=== PATIENT | male | born 1975 | race Hispanic/Latino ===

== ENCOUNTER 2018-05-11 16:36 | Emergency (ER) | payer OTHER ==
[2018-05-11 17:36] LABS: BASOPHILS % (AUTO) 0.6 % (0.0-5.0); EOSINOPHILS % (AUTO) 0.9 % (0.0-8.0); HEMATOCRIT 27.9 % (42-54); LYMPHOCYTES % (AUTO) 11.8 % (21.0-51.0); MEAN CORPUSCULAR HGB CONC 33.2 g/dL (32.0-36.0); MEAN CORPUSCULAR VOLUME 81.4 fL (79-99); MONOCYTES % (AUTO) 12.6 % (3.0-13.0); NEUTROPHILS % (AUTO) 74.1 % (40.0-77.0); NUCLEATED RED BLOOD CELLS 0.2 % (0.0-0.19); PLATELET COUNT (AUTO) 335 K/uL (130-400); RED BLOOD CELL COUNT(AUTO) 3.43 MIL/uL (4.50-6.20); RED CELL DISTRIBUTION WIDTH 15.5 % (11.0-15.5); WHITE BLOOD COUNT (AUTO) 8.9 K/uL (4.8-10.8)
[2018-05-11 17:50] LABS: INR 1.01 (0.85-1.15); PROTHROMBIN TIME 10.6 SEC (9.6-11.6)
[2018-05-11 17:51] LABS: AMYLASE 225 U/L (25-115); CREATINE KINASE, TOTAL 126 U/L (21-232); LIPASE 975 U/L (114-286)
[2018-05-11] MEDS ORDERED: SODIUM CHLORIDE 0.9% 1000ML 1,000 ML IV ONE (17:57)
[2018-05-11] MEDS ORDERED: ONDANSETRON HCL 4 MG/2 ML VIAL ONE (17:57)
[2018-05-11 18:29] LABS: CREATININE 2.7 mg/dL (0.5-1.5); POTASSIUM 4.7 mmol/L (3.5-5.1)
[2018-05-11 18:34] LABS: ALBUMIN 2.8 g/dL (3.5-5.0); BILIRUBIN,TOTAL 0.4 mg/dL (0.2-1.0); TOTAL PROTEIN, SERUM 8.9 g/dL (6.0-8.3)
[2018-05-11] MEDS ORDERED: DOCUSATE SODIUM 100 MG CAP PO ONE (19:04)
== END 2018-05-11 19:31 | disposition home or self-care (01) ==
LOC: EDH 16:36
DX: K85.90 Acute pancreatitis without necrosis or infection, unspecified (principal); K59.00 Constipation, unspecified; N28.9 Disorder of kidney and ureter, unspecified; Z21 Asymptomatic human immunodeficiency virus [HIV] infection status
CPT/HCPCS: 36415; 74176; 80053; 82150; 82550; 83690; 84484; 85025; 85610; 85730; 93005; 96361; 96374; 99284; J2405; J7030

== ENCOUNTER 2018-05-14 20:31 | Inpatient (IN) | payer OTHER ==
[~2018-05-14] VITALS: Ht 170.2 cm; Wt 49.9 kg
[2018-05-14 21:09] LABS: BASOPHILS % (AUTO) 1.3 % (0.0-5.0); HEMATOCRIT 27.9 % (42-54); LYMPHOCYTES % (AUTO) 16.7 % (21.0-51.0); MEAN CORPUSCULAR HEMOGLOBIN 27.5 pg (27.0-33.0); MEAN CORPUSCULAR HGB CONC 34.2 g/dL (32.0-36.0); MEAN CORPUSCULAR VOLUME 80.6 fL (79-99); MONOCYTES % (AUTO) 13.4 % (3.0-13.0); NEUTROPHILS % (AUTO) 63.6 % (40.0-77.0); NUCLEATED RED BLOOD CELLS 0.1 % (0.0-0.19); PLATELET COUNT (AUTO) 434 K/uL (130-400); RED BLOOD CELL COUNT(AUTO) 3.47 MIL/uL (4.50-6.20); RED CELL DISTRIBUTION WIDTH 15.7 % (11.0-15.5)
[2018-05-14 21:26] LABS: INR 0.96 (0.85-1.15); PARTIAL THROMBOPLASTIN TIME 27.7 SEC (26.3-35.5); PROTHROMBIN TIME 10.1 SEC (9.6-11.6)
[2018-05-14 21:35] LABS: AMYLASE 210 U/L (25-115); CREATINE KINASE, TOTAL 52 U/L (21-232); LIPASE 1012 U/L (114-286)
[2018-05-14] MEDS ORDERED: ONDANSETRON HCL 4 MG/2 ML VIAL ONE (21:44)
[2018-05-14] MEDS ORDERED: SODIUM CHLORIDE 0.9% 1000ML 1,000 ML IV ONE (21:44)
[2018-05-14 21:48] LABS: APPEARANCE,URINE Clear (CLEAR); BILIRUBIN,URINE Negative (NEGATIVE); COLOR,URINE Orange (YELLOW); GLUCOSE, URINE (UA) Negative (NEGATIVE); KETONES,URINE Negative (NEGATIVE); LEUKOCYTE ESTERASE ,URINE Negative (NEGATIVE); NITRATE,URINE Negative (NEGATIVE); OCCULT BLOOD,URINE Negative (NEGATIVE); PH,URINE 6.5 (5.0-8.0); PROTEIN,URINE POS 1+ (NEGATIVE)
[2018-05-14 22:09] LABS: B-TYPE NATRIURETIC PEPTIDE < 5 pg/mL (0-100)
[2018-05-14 22:15] LABS: BACTERIA,URINE Rare /HPF (None Seen); MUCUS,URINE Moderate LPF (None Seen); RBC,URINE None Seen /HPF (0-1); TRANSITIONAL EPI CELLS,URINE Few /HPF (None Seen)
[2018-05-14] MEDS ORDERED: DEXTROSE 5 % AND 0.9 % NACL 1,000 ML IV ONE (22:49)
[2018-05-14] MEDS ORDERED: LEVOFLOXACIN 500 MG/D5W 100 ML 100 ML ONE (22:49)
[2018-05-14 22:54] LABS: CHOLESTEROL 108 mg/dL (<200); HDL CHOLESTEROL 22 mg/dL (29-71); LDL DIRECT 73 mg/dL (0-99); TRIGLYCERIDES 113 mg/dL (30-200)
[2018-05-14] MEDS: DEXTROSE 5 % AND 0.9 % NACL 1,000 ML IV SCH (23:45)
[2018-05-14] MEDS ORDERED: MORPHINE SULFATE 2 MG/ML 1ML SYG IVP PRN (23:45)
[2018-05-14] MEDS ORDERED: ACETAMINOPHEN 325 MG TAB PO PRN (23:45)
[2018-05-15] MEDS: LEVOFLOXACIN 500 MG/D5W 100 ML 100 ML IV SCH
[2018-05-15 06:05] LABS: CREATININE 1.8 mg/dL (0.5-1.5); POTASSIUM 5.1 mmol/L (3.5-5.1)
[2018-05-15 07:59] VITALS: BP 108/65
[2018-05-15] MEDS: FAMOTIDINE/PF 20 MG/2 ML VIAL IV SCH (09:00)
[2018-05-15 11:28] VITALS: BP 90/67
--- NOTE | 2018-05-15 12:00 | NUR ---
RECORDS REQUESTED FROM [facility]
--- NOTE | 2018-05-15 14:00 | NUR ---
SESAR DCP ADVISED BY KAREN FROM [facility] THAT THIS PATIENT OF [place] CAN BE TRNA SFERRED WITH AN MD ORDER TO [facility]; WILL INITATED INFO AND WAIN FOR MD ORDER TO TRANSFER
[2018-05-15 15:39] VITALS: BP 98/67
[2018-05-15] MEDS: DEXTROSE 5 % AND 0.9 % NACL 1,000 ML IV SCH (17:49)
[2018-05-15 19:00] VITALS: BP 106/64
[2018-05-16] VITALS (7 sets, daily range): BP systolic 92–108; BP diastolic 59–73
[2018-05-16] MEDS: LEVOFLOXACIN 500 MG/D5W 100 ML 100 ML IV SCH (00:57)
[2018-05-16] MEDS: DEXTROSE 5 % AND 0.9 % NACL 1,000 ML IV SCH ×4 (00:58→18:26)
[2018-05-16 05:05] LABS: HEMATOCRIT 24.2 % (42-54); MEAN CORPUSCULAR HEMOGLOBIN 28.2 pg (27.0-33.0); MEAN CORPUSCULAR HGB CONC 34.3 g/dL (32.0-36.0); MEAN CORPUSCULAR VOLUME 82.2 fL (79-99); PLATELET COUNT (AUTO) 394 K/uL (130-400); RED BLOOD CELL COUNT(AUTO) 2.94 MIL/uL (4.50-6.20); RED CELL DISTRIBUTION WIDTH 15.7 % (11.0-15.5)
[2018-05-16 05:21] LABS: CREATININE 1.8 mg/dL (0.5-1.5); POTASSIUM 4.9 mmol/L (3.5-5.1)
[2018-05-16] MEDS: FAMOTIDINE/PF 20 MG/2 ML VIAL IV SCH (10:39)
--- NOTE | 2018-05-16 16:53 | NUR ---
RDScreen - Low BMI Patient with Acute pancreatitis; NPO at time of screen. Patient BMI 17.1; RD to consider nutritional supplement as diet is advanced. When medically feasible, rec to advance diet as tolerated. Patient monitored labs: Na 134, BUN 23, Cr 1.8, u 121, GFR 44. Patient LBM 05/14/18. RD to continue to monitor nutritional labs and diet advancement. Please notify RD as nutritional concerns arise. Thank you. Addendum: 05/16/18 at [address] Amended: Links added.
[2018-05-16] MEDS ORDERED: LIDOCAINE HCL-MPF 1% 2ML VIAL IVP PRN (17:45)
[2018-05-16] MEDS ORDERED: POTASSIUM CHLORIDE 10MEQ/100ML 100 ML IV PRN (17:45)
[2018-05-16] MEDS ORDERED: MAGNESIUM 2GM PREMIX 50ML 50 ML IV PRN (17:45)
--- NOTE | 2018-05-16 17:56 | NUR ---
JOSHUA SAUL FOR DR. HANNAH RE REFERRAL TO [facility] AND TRANSFER
--- NOTE | 2018-05-16 18:58 | NUR ---
SPOKE WITH BASSAM MARIANO, NURSE FROM [facility] AND INFORMED HER OF NEEDED MEDS LEFT AT [facility], VERBALIZED UNDERSTANDING. BASSAM PRINCE WILL HAVE THEM PAN WASHER HAND MEDS FROM [place] IN A.M. AT SHIFT CHANGE TOMORROW.
[2018-05-17] MEDS: DEXTROSE 5 % AND 0.9 % NACL 1,000 ML IV SCH ×3 (00:19→12:57)
[2018-05-17] MEDS: LEVOFLOXACIN 500 MG/D5W 100 ML 100 ML IV SCH (00:20)
--- NOTE | 2018-05-17 03:39 | NUR ---
STATUS Pt slept well.No distress noted.Temp max 100.3.Remains on Ivf and levaquin antibiotics.Guards at bedside.
[2018-05-17 03:42] VITALS: BP 95/57
[2018-05-17 04:26] LABS: HEMATOCRIT 22.7 % (42-54); MEAN CORPUSCULAR HEMOGLOBIN 26.8 pg (27.0-33.0); MEAN CORPUSCULAR HGB CONC 32.8 g/dL (32.0-36.0); MEAN CORPUSCULAR VOLUME 81.6 fL (79-99); PLATELET COUNT (AUTO) 360 K/uL (130-400); RED BLOOD CELL COUNT(AUTO) 2.79 MIL/uL (4.50-6.20); WHITE BLOOD COUNT (AUTO) 5.7 K/uL (4.8-10.8)
[2018-05-17 04:42] LABS: ALBUMIN 2.4 g/dL (3.5-5.0); BILIRUBIN,TOTAL 0.3 mg/dL (0.2-1.0); CREATININE 1.8 mg/dL (0.5-1.5); MAGNESIUM 1.6 mg/dL (1.80-2.40); PHOSPHORUS 3.4 mg/dL (2.5-4.9); POTASSIUM 4.6 mmol/L (3.5-5.1); TOTAL PROTEIN, SERUM 7.9 g/dL (6.0-8.3)
[2018-05-17 08:00] VITALS: BP 115/70
[2018-05-17] MEDS: FAMOTIDINE/PF 20 MG/2 ML VIAL IV SCH (08:53)
[2018-05-17 11:00] VITALS: BP 104/72
[2018-05-17 16:00] VITALS: BP 112/69
== END 2018-05-17 21:40 | DRG 438 ==
LOC: EDH 20:31 → EEVIPCON 20:32 → OBSVTOIN 20:32 → EDHIP 20:32 → 4CH 05-15 08:03
PROVIDERS: ADMIT Internal Medicine; ATTEND Internal Medicine
DX: K85.30 Drug induced acute pancreatitis without necrosis or infection (principal); E43 Unspecified severe protein-calorie malnutrition; N17.9 Acute kidney failure, unspecified; B20 Human immunodeficiency virus [HIV] disease; A31.0 Pulmonary mycobacterial infection; R64 Cachexia; Z68.1 Body mass index [BMI] 19.9 or less, adult; K86.1 Other chronic pancreatitis; D64.9 Anemia, unspecified; E86.0 Dehydration; R53.81 Other malaise
CPT/HCPCS: 36415; 71045; 76700; 80048; 80053; 80061; 81001; 82150; 82550; 83690; 83735; 83880; 84100; 84484; 85025; 85027; 85610; 85730; 93005; G0378; J1956; J2405; J3475; J3490; J7030; J7042

== ENCOUNTER 2018-09-20 15:00 | Inpatient (IN) | payer OTHER ==
[~2018-09-20] VITALS: Ht 170.2 cm; Wt 48.9 kg
[2018-09-20] MEDS ORDERED: ONDANSETRON HCL 4 MG/2 ML VIAL ONE (16:03)
[2018-09-20] MEDS ORDERED: SODIUM CHLORIDE 0.9% 1000ML 1,000 ML IV ONE ×2 (16:04→22:47)
[2018-09-20 16:12] LABS: BASOPHILS % (AUTO) 2.4 % (0.0-5.0); EOSINOPHILS % (AUTO) 2.2 % (0.0-8.0); HEMATOCRIT 23.2 % (42-54); LYMPHOCYTES % (AUTO) 32.3 % (21.0-51.0); MEAN CORPUSCULAR HEMOGLOBIN 28.7 pg (27.0-33.0); MEAN CORPUSCULAR HGB CONC 33.5 g/dL (32.0-36.0); MEAN CORPUSCULAR VOLUME 85.5 fL (79-99); MONOCYTES % (AUTO) 14.1 % (3.0-13.0); PLATELET COUNT (AUTO) 379 K/uL (130-400); RED BLOOD CELL COUNT(AUTO) 2.71 MIL/uL (4.50-6.20); RED CELL DISTRIBUTION WIDTH 15.5 % (11.0-15.5); WHITE BLOOD COUNT (AUTO) 5.7 K/uL (4.8-10.8)
[2018-09-20 16:43] LABS: ALBUMIN 3.3 g/dL (3.5-5.0); BILIRUBIN,TOTAL 0.2 mg/dL (0.2-1.0); CREATININE 5.6 mg/dL (0.5-1.5); POTASSIUM 5.3 mmol/L (3.5-5.1); TOTAL PROTEIN, SERUM 9.3 g/dL (6.0-8.3)
[2018-09-20 17:06] LABS: APPEARANCE,URINE Clear (CLEAR); BILIRUBIN,URINE Negative (NEGATIVE); COLOR,URINE Yellow (YELLOW); GLUCOSE, URINE (UA) Negative (NEGATIVE); KETONES,URINE Negative (NEGATIVE); LEUKOCYTE ESTERASE ,URINE Negative (NEGATIVE); NITRATE,URINE Negative (NEGATIVE); OCCULT BLOOD,URINE Negative (NEGATIVE); PROTEIN,URINE Trace mg/dL (NEGATIVE); UROBILINOGEN,URINE 0.2 mg/dL (0.2-1.0)
[2018-09-20 17:18] LABS: BACTERIA,URINE Few /HPF (None Seen); RBC,URINE 0-1 /HPF (0-1); WBC,URINE 0-1 /HPF (0-1)
[2018-09-20 17:19] LABS: MUCUS,URINE Rare LPF (None Seen); SQUAMOUS EPITHELIAL CELL,UR Few /HPF (0-2)
[2018-09-20] MEDS ORDERED: MORPHINE SULFATE 2 MG/ML 1ML SYG IVP PRN (22:00)
[2018-09-20] MEDS ORDERED: ONDANSETRON HCL 4 MG/2 ML VIAL IVP PRN (22:00)
[2018-09-20] MEDS: SODIUM CHLORIDE 0.9% 1000ML 1,000 ML IV SCH (23:20)
[2018-09-20] MEDS: ZOSYN 3.375GM+NS 50ML 50 ML IV SCH (23:20)
--- NOTE | 2018-09-20 23:20 | NUR ---
ADMISSION. PT ADMITTED INTO ROOM 408 FROM ER. PT AWAKE, ALERT AND RESPONSIVE, NO C/O PAIN OR DISCOMFORT AT THIS TIME. [facility] GUARDS AT BEDSIDE. PT ORIENTED TO ROOM. CALL MARTINEZ IN REACH, BED IN LOWEST POSITION. Addendum: 09/21/18 at 0027 by KEVEN QUIÑONES RN Amended: Links added.
[2018-09-20 23:25] VITALS: BP 112/74
[2018-09-21] VITALS (7 sets, daily range): BP systolic 101–156; BP diastolic 69–91
--- NOTE | 2018-09-21 06:45 | NUR ---
SPOKE TO NURSE JAI FROM [facility] REQUESTING LIST OF MEDICATION THAT PT RECEIVES, STATED WILL FAX OVER MED LIST.
[2018-09-21] MEDS: ZOSYN 3.375GM+NS 50ML 50 ML IV SCH ×2 (09:40→21:58)
[2018-09-21] MEDS: SODIUM CHLORIDE 0.9% 1000ML 1,000 ML IV SCH (09:42)
[2018-09-21] MEDS ORDERED: PHARMACY COMMUNICATION MISC SCH (10:30)
[2018-09-21] MEDS ORDERED: LACTULOSE 20 GM/30 ML UDCUP PO PRN (10:30)
[2018-09-21 10:55] LABS: HEMATOCRIT 20.1 % (42-54)
[2018-09-21 11:03] LABS: INR 1.04 (0.85-1.15); PROTHROMBIN TIME 10.9 SEC (9.6-11.6)
[2018-09-21] MEDS ORDERED: PANTOPRAZOLE 40 MG/VIAL IVP SCH (12:05)
[2018-09-21] MEDS ORDERED: COMPOUND IV MISC 1 EACH IVSOLN MISC PRN (12:30)
--- NOTE | 2018-09-21 13:00 | NUR ---
As per Dr Norman, pt does not need to be on droplet isolation due to hx chronic mycobacterium avium complex infection.
--- NOTE | 2018-09-21 13:27 | NUR ---
Initiated transfusion on 1 unit PRBC's as ordered by Demetrice Vo NP. Verification completed by 2 nurses (Sarah,RN, Eliza,HAROLDO). Pre transfusion vitals recorded. Left AC 20g flushing well, rate of 75ml/hr per protocol.
[2018-09-21] MEDS ORDERED: EPOETIN ALFA 10,000 UNIT/ML VIAL SQ SCH (13:30)
[2018-09-21 14:20] LABS: PROTEIN,URINE RANDOM 44.1 mg/dL (0-11.9)
--- NOTE | 2018-09-21 15:55 | NUR ---
Nutrition intervention: Nutrition notification for malnutrition. Pt admitted for acute pancreatitis, anemia, hyponatremia. Pt currently NPO. Altered lab values. Elevated lipase. Pt reports 19lb wt loss in the past two weeks, account for 15% of usual body weight, severe wt loss. Pt reports current diet in [facility] is hypercaloric with double portion of foods and ensure TID. Pt requesting sandwich with all meals, nutrition supplementation TID and HS snack for added caloric intake. RN at bedside during RD visit and is aware of pt's request. Diet to be advanced when medically feasible. Recommendations: Low fat diet therapy. Pt has been educated on pancreatitis diet. Long-Term officers at bedside report medical team in [facility] facility available for detainees and accommodate for pt's need. Increase caloric intake. Discourage additional wt loss. When medically feasible, advance diet therapy to, Heart Healthy, low fat diet therapy. Consult RD as nutrition concerns arise. Addendum: 09/21/18 at [address] Amended: Links added.
--- NOTE | 2018-09-21 16:20 | NUR ---
Completed transfusion of PRBC's. Pt tolerated well, no x/x transfusion reaction.
--- NOTE | 2018-09-21 16:27 | NUR ---
DCP CM met with pt discussed dc plans. Pt is independent prior to admission, currently /[facility]. Ulises Mon guard at bedside. DC plan back to [facility]. CM to cont to follow up. Addendum: 09/21/18 at 1628 by DORIS ORDAZ LVN CM Amended: Links added.
--- NOTE | 2018-09-21 17:44 | NUR ---
Have been unable to administer IV procrit thus far; per nuclear med tech request, must be given after hida scan.
[2018-09-21] MEDS: DEXTROSE 5 % AND 0.9 % NACL 1,000 ML IV SCH (17:51)
[2018-09-21 17:59] LABS: PROTEIN,URINE RANDOM 41.7 mg/dL (0-11.9)
[2018-09-21 21:07] LABS: HEMATOCRIT 26.2 % (42-54)
--- NOTE | 2018-09-21 21:15 | NUR ---
MD GU. DR BUNDY IN PT ROOM AT THIS TIME. REVIEWED PT CHART, AND UPDATED PT ON P.O.C. PT QUESTIONS AND CONCERNS WERE ADDRESSED WHILE VISIT. NEW ORDERS RECEIVED, REFER TO EMR. Addendum: 09/21/18 at 2306 by KEVEN QUIÑONES RN Amended: Links added.
[2018-09-21] MEDS: PANTOPRAZOLE 40 MG/VIAL IVP SCH (21:57)
[2018-09-21] MEDS: OCTREOTIDE ACETATE 500 MCG in SODIUM CHLORIDE 0.9% 97.5 ML IV PRN (21:57)
[2018-09-21] MEDS: SODIUM BICARBONATE 650 MG TAB PO SCH (21:58)
[2018-09-21] MEDS: IRON SUCROSE COMPLEX 100 MG in SODIUM CHLORIDE 0.9% 50 ML IV SCH (21:58)
[2018-09-22] VITALS (21 sets, daily range): BP systolic 91–132; BP diastolic 62–88
[2018-09-22] MEDS: DEXTROSE 5 % AND 0.9 % NACL 1,000 ML IV SCH (00:41)
[2018-09-22 02:34] LABS: HEMATOCRIT 23.4 % (42-54); MEAN CORPUSCULAR HGB CONC 34.6 g/dL (32.0-36.0); MEAN CORPUSCULAR VOLUME 86.8 fL (79-99); PLATELET COUNT (AUTO) 261 K/uL (130-400); WHITE BLOOD COUNT (AUTO) 4.3 K/uL (4.8-10.8)
[2018-09-22 02:48] LABS: ALBUMIN 2.6 g/dL (3.5-5.0); BILIRUBIN,TOTAL 0.4 mg/dL (0.2-1.0); CREATININE 5.1 mg/dL (0.5-1.5); MAGNESIUM 1.5 mg/dL (1.80-2.40); PHOSPHORUS 5.6 mg/dL (2.5-4.9); POTASSIUM 4.9 mmol/L (3.5-5.1); TOTAL PROTEIN, SERUM 7.9 g/dL (6.0-8.3)
[2018-09-22 04:05] LABS: BASOPHILS % (MANUAL) 2 % (0-2); LYMPHOCYTES % (MANUAL) 23 % (22-44); MONOCYTES % (MANUAL) 8 % (2-9); SEGMENTED NEUTROPHILS % 67 % (40-70)
[2018-09-22 04:06] LABS: MAN.DIFF COMMENT-IMPRESSION MANUAL DIFFERENTIAL
[2018-09-22] MEDS ORDERED: POLY17PO4 PO (04:59)
[2018-09-22] MEDS ORDERED: SOMA6VIA SQ (04:59)
[2018-09-22] MEDS ORDERED: PNV1TABL17 PO (04:59)
[2018-09-22] MEDS ORDERED: RANI300T7 PO (04:59)
[2018-09-22] MEDS ORDERED: LACT10SO9 PO (04:59)
[2018-09-22] MEDS ORDERED: FLUC100T8 PO (04:59)
[2018-09-22] MEDS ORDERED: ATOV5L PO (04:59)
--- NOTE | 2018-09-22 08:05 | NUR ---
DR. STRATTON ROUNDED AND INDICATED PATIENT HAVING CHRONIC RENAL INSUFFICIENCY AND COULD BE DISCHARGED FROM HIS STANDPOINT. DR. STRATTON WAS MADE AWARE OF PATIENT HAVING LOW MG LEVEL OF 1.5.
[2018-09-22] MEDS: IRON SUCROSE COMPLEX 100 MG in SODIUM CHLORIDE 0.9% 50 ML IV SCH (08:32)
[2018-09-22] MEDS: SODIUM BICARBONATE 650 MG TAB PO SCH ×2 (08:32→21:36)
[2018-09-22] MEDS: PANTOPRAZOLE 40 MG/VIAL IVP SCH ×2 (08:33→21:35)
[2018-09-22] MEDS: ZOSYN 3.375GM+NS 50ML 50 ML IV SCH ×2 (09:23→21:35)
[2018-09-22 10:18] LABS: HEMATOCRIT 23.1 % (42-54)
--- NOTE | 2018-09-22 12:20 | NUR ---
DR. COLBERT ROUNDED AND INDICATED PATIENT COULD HAVE A LOWFAT DIET ONCE HE IS READY TO EAT. INFORMED DR. COLBERT OF PATIENT BEING NPO FOR EGD THIS PM. INDICATED PATIENT WOULD NOT BE HAVING SURGERY AND COULD EAT ONCE PROCEDURE IS DONE.
--- NOTE | 2018-09-22 12:30 | NUR ---
PATIENT WAS TAKEN VIA BED FOR EGD. AT THIS TIME. PATIENT STABLE AND DENIES PAIN AT 12NOON.
[2018-09-22] MEDS ORDERED: PROPOFOL 10 MG/ML 20ML VIAL IV ONE (13:38)
--- NOTE | 2018-09-22 14:20 | NUR ---
HAROLDO BLAKELY FROM PACU CALLED RE EGD AND INDICATED PATIENT WAS DIAGNOSED WITH ESOPHAGITIS AND ACUTE GASTRITIS. PATIENT COULD BE DISCHARGED FROM HIS STANDPOINT AND RETURN TO CLINIC IN 2 WEEKS. TAKE PROTONIX DAILY.
--- NOTE | 2018-09-22 14:30 | NUR ---
BACK FROM EGD AND CONTINUED IV FLUIDS. PATIENT C/O MILD DISCOMFORT AND WILL MEDICATE INDICATED. NO DISTRESS NOTED ALTHOUGH PATIENT DID HAVE A DIASTOLIC BP OF 98 AND WILL CONTINUE TO MONITOR.
[2018-09-22] MEDS ORDERED: HYDROMORPHONE HCL 2 MG/ML VIAL IVP PRN (18:45)
[2018-09-22 19:18] LABS: HEMATOCRIT 27.1 % (42-54)
[2018-09-22] MEDS: OCTREOTIDE ACETATE 500 MCG in SODIUM CHLORIDE 0.9% 97.5 ML IV PRN (21:44)
[2018-09-23 03:52] VITALS: BP 108/73
[2018-09-23 03:54] LABS: ABG BASE EXCESS -11.5 mmol/L (-2.0-3.0); ABG HCO3 12.5 mmol/L (21.0-28.0); ABG OXYGEN SATURATION 98.2 % (95.0-99.0); ABG PCO2 25 mmHg (35-48)
[2018-09-23] MEDS: DEXTROSE 5 % AND 0.9 % NACL 1,000 ML IV SCH ×2 (04:15→17:35)
[2018-09-23 05:16] LABS: HEMATOCRIT 22.4 % (42-54); MEAN CORPUSCULAR HEMOGLOBIN 30.2 pg (27.0-33.0); MEAN CORPUSCULAR HGB CONC 34.4 g/dL (32.0-36.0); MEAN CORPUSCULAR VOLUME 87.7 fL (79-99); PLATELET COUNT (AUTO) 236 K/uL (130-400); RED BLOOD CELL COUNT(AUTO) 2.55 MIL/uL (4.50-6.20); RED CELL DISTRIBUTION WIDTH 15.8 % (11.0-15.5); WHITE BLOOD COUNT (AUTO) 5.3 K/uL (4.8-10.8)
[2018-09-23 05:50] LABS: CREATININE 5.1 mg/dL (0.5-1.5); POTASSIUM 4.8 mmol/L (3.5-5.1)
[2018-09-23 05:51] LABS: ALBUMIN 2.5 g/dL (3.5-5.0); BILIRUBIN,TOTAL 0.3 mg/dL (0.2-1.0); MAGNESIUM 1.5 mg/dL (1.80-2.40); PHOSPHORUS 4.3 mg/dL (2.5-4.9); TOTAL PROTEIN, SERUM 7.8 g/dL (6.0-8.3)
[2018-09-23 08:00] VITALS: BP 118/82
[2018-09-23] MEDS: IRON SUCROSE COMPLEX 100 MG in SODIUM CHLORIDE 0.9% 50 ML IV SCH (08:26)
[2018-09-23] MEDS: PANTOPRAZOLE SODIUM 40 MG TABLET.DR PO SCH (08:26)
[2018-09-23] MEDS: SODIUM BICARBONATE 650 MG TAB PO SCH ×2 (08:26→21:28)
[2018-09-23] MEDS: OCTREOTIDE ACETATE 500 MCG in SODIUM CHLORIDE 0.9% 97.5 ML IV PRN (08:31)
[2018-09-23 11:00] VITALS: BP 117/79
[2018-09-23] MEDS: ZOSYN 3.375GM+NS 50ML 50 ML IV SCH ×2 (11:47→22:00)
[2018-09-23 16:00] VITALS: BP 127/81
[2018-09-23] MEDS ORDERED: MAGNESIUM 2GM PREMIX 50ML 50 ML IV ONE (17:41)
[2018-09-23 20:00] VITALS: BP 109/70
[2018-09-23] MEDS: FOLIC ACID/VITAMIN B COMP W-C 1 MG CAPSULE PO SCH (21:28)
[2018-09-23 23:53] VITALS: BP 113/70
[2018-09-24 04:00] VITALS: BP 111/75
[2018-09-24 05:15] LABS: BASOPHILS % (AUTO) 1.2 % (0.0-5.0); EOSINOPHILS % (AUTO) 5.2 % (0.0-8.0); HEMATOCRIT 22.8 % (42-54); LYMPHOCYTES % (AUTO) 22.4 % (21.0-51.0); MEAN CORPUSCULAR HEMOGLOBIN 28.7 pg (27.0-33.0); MEAN CORPUSCULAR HGB CONC 32.9 g/dL (32.0-36.0); MEAN CORPUSCULAR VOLUME 87.1 fL (79-99); NEUTROPHILS % (AUTO) 57.2 % (40.0-77.0); PLATELET COUNT (AUTO) 243 K/uL (130-400); RED BLOOD CELL COUNT(AUTO) 2.62 MIL/uL (4.50-6.20); RED CELL DISTRIBUTION WIDTH 15.8 % (11.0-15.5); WHITE BLOOD COUNT (AUTO) 5.8 K/uL (4.8-10.8)
[2018-09-24 05:21] LABS: INR 1.02 (0.85-1.15); PARTIAL THROMBOPLASTIN TIME 32.9 SEC (26.3-35.5); PROTHROMBIN TIME 10.7 SEC (9.6-11.6)
[2018-09-24 05:32] LABS: ALBUMIN 2.1 g/dL (3.5-5.0); BILIRUBIN,TOTAL 0.2 mg/dL (0.2-1.0); CREATININE 4.4 mg/dL (0.5-1.5); MAGNESIUM 1.8 mg/dL (1.80-2.40); PHOSPHORUS 2.6 mg/dL (2.5-4.9); POTASSIUM 4.1 mmol/L (3.5-5.1); TOTAL PROTEIN, SERUM 6.8 g/dL (6.0-8.3)
[2018-09-24 06:14] LABS: % IRON SATURATION 59.8 % (30-44)
[2018-09-24] MEDS: MAGNESIUM 2GM PREMIX 50ML 50 ML IV PRN (06:31)
[2018-09-24] MEDS: DEXTROSE 5 % AND 0.9 % NACL 1,000 ML IV SCH (06:55)
[2018-09-24 07:30] VITALS: BP 137/88
--- NOTE | 2018-09-24 07:45 | NUR ---
NOTE ADMITTED WITH RENAL FAILURE, HIV, ANEMIA, PANCREATITIS. HE IS A DETAINEE. GUARDS AT HIS SIDE THE WHOLE TIME. HE IS CUFFED FROM ARM AND LEG TO BED. DENIES ABDOMINAL PAIN AT THIS TIME. HAS BEEN TOLERATING SOFT DIET, LOW FAT. DR BUNDY WANTED TO DO COLONOSCOPY BUT IS GOING TO WAIT FOR PANCREATIC ENZYMES TO TREND DOWN FIRST.
[2018-09-24] MEDS: PANTOPRAZOLE SODIUM 40 MG TABLET.DR PO SCH (08:41)
[2018-09-24] MEDS: IRON SUCROSE COMPLEX 100 MG in SODIUM CHLORIDE 0.9% 50 ML IV SCH (08:41)
[2018-09-24] MEDS: FOLIC ACID/VITAMIN B COMP W-C 1 MG CAPSULE PO SCH (08:41)
[2018-09-24] MEDS: SODIUM BICARBONATE 650 MG TAB PO SCH ×2 (08:41→21:43)
[2018-09-24 11:00] VITALS: BP 111/67
[2018-09-24] MEDS: ZOSYN 3.375GM+NS 50ML 50 ML IV SCH ×2 (12:15→21:43)
[2018-09-24 16:00] VITALS: BP 154/64
--- NOTE | 2018-09-24 18:00 | NUR ---
NOTES MD'S DR COLBERT STOPPED BY AND SAID NO PLANS FOR SURGERY. HE WAS MADE AWARE OF HIDA SCAN RESULTS. DR SALAS CONTINUE WITH ABX AND SAYS PATIENT NEEDS CHOLECYSTECTOMY FOR CHOLECYSTITIS DR JOE STOPPED BY AND WAS INFORMED OF RESULTS FROM 24 HR URINE COLLECTION NO ORDERS RECEIVED FOR IT THOUGH IT WAS ELEVATED. HE ORDERED TO HAVE CBC AND BMP WELL UA DONE TOMORROW AM.
[2018-09-24 19:00] VITALS: BP 95/60
[2018-09-24 23:00] VITALS: BP 103/62
[2018-09-25] MEDS: DEXTROSE 5 % AND 0.9 % NACL 1,000 ML IV SCH ×2 (01:19→10:01)
[2018-09-25 03:00] VITALS: BP 99/65
[2018-09-25 04:51] LABS: BASOPHILS % (AUTO) 2.3 % (0.0-5.0); HEMATOCRIT 22.3 % (42-54); LYMPHOCYTES % (AUTO) 21.9 % (21.0-51.0); MEAN CORPUSCULAR HEMOGLOBIN 30.4 pg (27.0-33.0); MEAN CORPUSCULAR HGB CONC 34.8 g/dL (32.0-36.0); MEAN CORPUSCULAR VOLUME 87.3 fL (79-99); MONOCYTES % (AUTO) 13.6 % (3.0-13.0); NEUTROPHILS % (AUTO) 56.2 % (40.0-77.0); NUCLEATED RED BLOOD CELLS 0.2 % (0.0-0.19); PLATELET COUNT (AUTO) 237 K/uL (130-400); RED BLOOD CELL COUNT(AUTO) 2.56 MIL/uL (4.50-6.20); RED CELL DISTRIBUTION WIDTH 16.2 % (11.0-15.5); WHITE BLOOD COUNT (AUTO) 6.5 K/uL (4.8-10.8)
[2018-09-25 05:08] LABS: CREATININE 4.2 mg/dL (0.5-1.5); MAGNESIUM 1.9 mg/dL (1.80-2.40); PHOSPHORUS 1.7 mg/dL (2.5-4.9)
[2018-09-25 07:58] VITALS: BP 117/78
[2018-09-25] MEDS: FOLIC ACID/VITAMIN B COMP W-C 1 MG CAPSULE PO SCH (10:00)
[2018-09-25] MEDS: IRON SUCROSE COMPLEX 100 MG in SODIUM CHLORIDE 0.9% 50 ML IV SCH (10:00)
[2018-09-25] MEDS: SODIUM BICARBONATE 650 MG TAB PO SCH ×2 (10:01→21:51)
[2018-09-25] MEDS: ZOSYN 3.375GM+NS 50ML 50 ML IV SCH ×2 (10:01→21:51)
[2018-09-25] MEDS: PANTOPRAZOLE SODIUM 40 MG TABLET.DR PO SCH (10:01)
[2018-09-25 11:05] LABS: APPEARANCE,URINE Clear (CLEAR); BILIRUBIN,URINE Negative (NEGATIVE); COLOR,URINE Yellow (YELLOW); GLUCOSE, URINE (UA) Negative (NEGATIVE); KETONES,URINE Negative (NEGATIVE); LEUKOCYTE ESTERASE ,URINE Negative (NEGATIVE); NITRATE,URINE Negative (NEGATIVE); OCCULT BLOOD,URINE Negative (NEGATIVE); PH,URINE 6.5 (5.0-8.0); PROTEIN,URINE Negative (NEGATIVE); UROBILINOGEN,URINE 0.2 mg/dL (0.2-1.0)
[2018-09-25 11:40] VITALS: BP 118/80
[2018-09-25] MEDS ORDERED: EPOETIN ALFA 10,000 UNIT/ML VIAL SQ SCH (13:15)
[2018-09-25 16:28] VITALS: BP 114/73
[2018-09-25 19:24] VITALS: BP 114/77
--- NOTE | 2018-09-25 22:35 | NUR ---
NAUSEA/VOMITING SOON AFTER ADMINISTERING DILAUDID 0.5MG FOR VOICED LOW BACK PAIN. ADMINISTERED ZOFRAN IV, WILL CONTINUE TO MONITOR.
[2018-09-25 23:00] VITALS: BP 128/81
--- NOTE | 2018-09-26 01:15 | NUR ---
PERSISTENT N/V, [facility] WAS CALLED AND GAVE NEW ORDERS. PATIENT REFUSES PRESCRIBED PHENERGAN IM AT THIS TIME. WILL CONTINUE TO MONITOR.
[2018-09-26] MEDS ORDERED: MEPERIDINE-PF 50 MG/ML SYG IVP PRN (01:30)
[2018-09-26] MEDS ORDERED: PROMETHAZINE HCL 25 MG/ML 1ML AMPULE IM PRN (01:30)
--- NOTE | 2018-09-26 02:05 | NUR ---
PERSISTENT N/V, BUT PATIENT CONTINUES TO REFUSE ANY OTHER MED AT THIS TIME HE FEELS THE MEDS ARE ONLY MAKING HIM SICK. WILL CONTINUE TO MONITOR.
[2018-09-26 03:34] VITALS: BP 118/71
--- NOTE | 2018-09-26 04:15 | NUR ---
PATIENT AWAKE AND ALERT, DENIES FURTHER N/V.
[2018-09-26 04:39] LABS: HEMATOCRIT 23.7 % (42-54); MEAN CORPUSCULAR HEMOGLOBIN 29.2 pg (27.0-33.0); MEAN CORPUSCULAR HGB CONC 33.4 g/dL (32.0-36.0); MEAN CORPUSCULAR VOLUME 87.6 fL (79-99); NUCLEATED RED BLOOD CELLS 0.2 % (0.0-0.19); PLATELET COUNT (AUTO) 270 K/uL (130-400); RED BLOOD CELL COUNT(AUTO) 2.71 MIL/uL (4.50-6.20); RED CELL DISTRIBUTION WIDTH 16.3 % (11.0-15.5); WHITE BLOOD COUNT (AUTO) 7.9 K/uL (4.8-10.8)
[2018-09-26 04:49] LABS: ALBUMIN 2.2 g/dL (3.5-5.0); BILIRUBIN,TOTAL 0.2 mg/dL (0.2-1.0); CREATININE 4.2 mg/dL (0.5-1.5)
[2018-09-26 07:42] VITALS: BP 114/63
[2018-09-26] MEDS: ZOSYN 3.375GM+NS 50ML 50 ML IV SCH ×2 (11:07→22:02)
[2018-09-26] MEDS: PANTOPRAZOLE SODIUM 40 MG TABLET.DR PO SCH (11:08)
[2018-09-26] MEDS: SODIUM BICARBONATE 650 MG TAB PO SCH ×2 (11:08→20:29)
[2018-09-26] MEDS: FOLIC ACID/VITAMIN B COMP W-C 1 MG CAPSULE PO SCH (11:08)
[2018-09-26 11:25] VITALS: BP 121/81
--- NOTE | 2018-09-26 14:06 | NUR ---
CHART REVIEWED NO CHANGE TO DC PLAN . WILL ASK IF THIS PT CAN BE TREATED AT [facility] FOR CURRENT ISSUE UNITL RESOLUTION. PENDING BMP TO ROUND. Addendum: 09/26/18 at 1407 by HENRRY RAMIREZ RN CM Amended: Links added.
[2018-09-26] MEDS: DEXTROSE 5 % AND 0.9 % NACL 1,000 ML IV SCH (14:18)
--- NOTE | 2018-09-26 15:11 | NUR ---
RD Follow up note Patient tolerating Soft, High Fiber, Low Fat diet with no complaint of GI distress and PO intake at 100%. Patient LBM 09/24/18. Patient monitored labs: BUN 42, Cr 4.2, GFR 17, Glu 141, Alb 2.2, Amylase 326, Lipase 1439. RD to continue to monitor. Please notify RD as nutritional concerns arise. Thank you. Addendum: 09/26/18 at [address] Amended: Links added.
[2018-09-26 16:29] VITALS: BP 112/76
--- NOTE | 2018-09-26 16:45 | NUR ---
VIDHI HUGHES, FRANK HUGHES, FRANK FOR DR. KRISTIAN CAMPBELL HERE TO SEE PATIENT. VIDHI HUGHES NP STATES PLAN IS TO AWAIT FOR DR. WHEELER'S RECOMMENDATIONS, NO FURTHER ORDERS AT THIS TIME.
[2018-09-26 19:40] VITALS: BP 117/80
[2018-09-26 23:42] VITALS: BP 115/95
[2018-09-27] MEDS: DEXTROSE 5 % AND 0.9 % NACL 1,000 ML IV SCH (03:35)
[2018-09-27 03:58] VITALS: BP 119/68
[2018-09-27 04:40] LABS: CREATININE 3.8 mg/dL (0.5-1.5); MAGNESIUM 1.3 mg/dL (1.80-2.40)
[2018-09-27] MEDS: MAGNESIUM 2GM PREMIX 50ML 50 ML IV PRN (06:11)
[2018-09-27 08:03] VITALS: BP 134/82
[2018-09-27] MEDS: ZOSYN 3.375GM+NS 50ML 50 ML IV SCH (09:54)
[2018-09-27] MEDS: FOLIC ACID/VITAMIN B COMP W-C 1 MG CAPSULE PO SCH (09:55)
[2018-09-27] MEDS: SODIUM BICARBONATE 650 MG TAB PO SCH (09:55)
[2018-09-27] MEDS: PANTOPRAZOLE SODIUM 40 MG TABLET.DR PO SCH (09:55)
[2018-09-27 11:52] VITALS: BP 123/73
--- NOTE | 2018-09-27 13:50 | NUR ---
PT D/C WITH EDUCATION GIVEN USING TEACK BACK NO SIGNS OF ACUTE DISTRESS NOTED REPORT GIVEN TO NURSE AYLA VALENZUELA RN FROM [facility] AND LAURA UGARTE CALLED AND MADE AWARE PT WAS BEING D/C CHARGE NURSE HOMERO SANCHEZ
--- NOTE | 2018-09-27 13:52 | NUR ---
IV REMOVED, CATHETER INTACT
--- NOTE | 2018-09-27 14:01 | NUR ---
DISCHARGE ASSESSMENT PT TO RETURN TO CUSTODY OF IMMIGRATION OFFICIALS, NO FURTHER CM INTERVENTION Addendum: 09/27/18 at 1402 by HENRRY RAMIREZ RN CM Amended: Links added.
== END 2018-09-27 14:12 | disposition home or self-care (01) | DRG 377 ==
LOC: EDH 15:00 → EEVIPCON 15:00 → EDHIP 19:48 → OBSVTOIN 19:48 → 4BH 22:48
PROVIDERS: ADMIT Internal Medicine Critical Care Medicine; ATTEND Internal Medicine Critical Care Medicine
PROC: 0DB98ZX Excision of Duodenum, Via Natural or Artificial Opening Endoscopic, Diagnostic (ICD-10-PCS; principal; 2018-09-22)
PROC: 0DB68ZX Excision of Stomach, Via Natural or Artificial Opening Endoscopic, Diagnostic (ICD-10-PCS; 2018-09-22)
PROC: 0DB38ZX Excision of Lower Esophagus, Via Natural or Artificial Opening Endoscopic, Diagnostic (ICD-10-PCS; 2018-09-22)
PROC: 30233N1 Transfusion of Nonautologous Red Blood Cells into Peripheral Vein, Percutaneous Approach (ICD-10-PCS; 2018-09-24)
DX: K29.01 Acute gastritis with bleeding (principal); K85.90 Acute pancreatitis without necrosis or infection, unspecified; K80.00 Calculus of gallbladder with acute cholecystitis without obstruction; A31.0 Pulmonary mycobacterial infection; N17.9 Acute kidney failure, unspecified; E87.1 Hypo-osmolality and hyponatremia; C18.9 Malignant neoplasm of colon, unspecified; E87.2 Acidosis; K63.3 Ulcer of intestine; K86.1 Other chronic pancreatitis; D69.6 Thrombocytopenia, unspecified; D75.9 Disease of blood and blood-forming organs, unspecified; K21.0 Gastro-esophageal reflux disease with esophagitis; K29.00 Acute gastritis without bleeding; D50.9 Iron deficiency anemia, unspecified; N18.9 Chronic kidney disease, unspecified; D63.8 Anemia in other chronic diseases classified elsewhere; D72.819 Decreased white blood cell count, unspecified; E11.21 Type 2 diabetes mellitus with diabetic nephropathy; E11.22 Type 2 diabetes mellitus with diabetic chronic kidney disease; E86.0 Dehydration; E87.5 Hyperkalemia; G89.29 Other chronic pain; I12.9 Hypertensive chronic kidney disease with stage 1 through stage 4 chronic kidney disease, or unspecified chronic kidney disease; K29.80 Duodenitis without bleeding; K55.20 Angiodysplasia of colon without hemorrhage; K82.8 Other specified diseases of gallbladder; Z79.899 Other long term (current) drug therapy; Z87.891 Personal history of nicotine dependence; K20.9 Esophagitis, unspecified
CPT/HCPCS: 36415; 36430; 36600; 43239; 71045; 76705; 76770; 78227; 80048; 80053; 80061; 81001; 81003; 82150; 82270; 82533; 82570; 82728; 82803; 82948; 83540; 83550; 83605; 83690; 83735; 83883; 84100; 84156; 84166; 84443; 84484; 85014; 85018; 85025; 85027; 85610; 85730; 86325; 86334; 86359; 86361; 86850; 86900; 86901; 86922; 87536; 88305; 93005; A9537; C9113; G0378; J0885; J1170; J1756; J2354; J2405; J2543; J2550; J2704; J3475; J7030; J7042; P9016

== ENCOUNTER 2018-11-06 08:03 | Day surgery (SDC) | payer OTHER ==
[~2018-11-06] VITALS: Ht 170.2 cm; Wt 57.6 kg
[2018-11-06] VITALS (10 sets, daily range): BP systolic 121–133; BP diastolic 85–101
[~2018-11-06 08:03] MED LIST: ATOV5L PO; FLUC100T8 PO; LACT10SO9 PO; PNV1TABL17 PO; POLY17PO4 PO; RANI300T7 PO; SOMA6VIA SQ
[2018-11-06 08:47] LABS: BASOPHILS % (AUTO) 1.2 % (0.0-5.0); EOSINOPHILS % (AUTO) 2.6 % (0.0-8.0); HEMATOCRIT 26.2 % (42-54); LYMPHOCYTES % (AUTO) 27.6 % (21.0-51.0); MEAN CORPUSCULAR HEMOGLOBIN 29.9 pg (27.0-33.0); MEAN CORPUSCULAR HGB CONC 33.3 g/dL (32.0-36.0); MEAN CORPUSCULAR VOLUME 89.9 fL (79-99); MONOCYTES % (AUTO) 15.6 % (3.0-13.0); PLATELET COUNT (AUTO) 312 K/uL (130-400); RED BLOOD CELL COUNT(AUTO) 2.91 MIL/uL (4.50-6.20); RED CELL DISTRIBUTION WIDTH 17.5 % (11.0-15.5); WHITE BLOOD COUNT (AUTO) 5.2 K/uL (4.8-10.8)
[2018-11-06 09:01] LABS: ALBUMIN 3.5 g/dL (3.5-5.0); BILIRUBIN,TOTAL 0.2 mg/dL (0.2-1.0); CREATININE 3.5 mg/dL (0.5-1.5); POTASSIUM 4.5 mmol/L (3.5-5.1); TOTAL PROTEIN, SERUM 9.1 g/dL (6.0-8.3)
[2018-11-06 09:02] LABS: INR 0.99 (0.85-1.15); PARTIAL THROMBOPLASTIN TIME 27.3 SEC (26.3-35.5); PROTHROMBIN TIME 10.4 SEC (9.6-11.6)
[2018-11-06] MEDS ORDERED: FENTANYL CITRATE PF 50 MCG/1 ML 2ML VIAL ONE (12:28)
[2018-11-06] MEDS ORDERED: MIDAZOLAM HCL 1 MG/ML 2ML VIAL ONE (12:28)
--- NOTE | 2018-11-06 13:57 | NUR ---
REPORT TO JOSSELINE PATRICIA RN AT [facility].
== END 2018-11-06 17:18 | disposition home or self-care (01) ==
LOC: DAH 08:03
PROVIDERS: ATTEND Internal Medicine Critical Care Medicine
DX: R59.9 Enlarged lymph nodes, unspecified (principal); Z79.899 Other long term (current) drug therapy; Z87.891 Personal history of nicotine dependence; Z72.89 Other problems related to lifestyle; F15.90 Other stimulant use, unspecified, uncomplicated; Z82.3 Family history of stroke
CPT/HCPCS: 36415; 49180; 77012; 80053; 85025; 85610; 85730; 87070; 87076; 87116; 87206; 88305; A4606; C2615; J2250; J3010; 99152